=== PATIENT | male | born 1955 | race Caucasian/White ===

== ENCOUNTER 2025-06-19 22:12 | Emergency (ER) | payer MEDICARE, OTHER, SELFPAY ==
[2025-06-19 23:35] LABS: #Basophils 0.08 10x3/uL (0.0-0.2); #Eosinophils 0.33 10x3/uL (0.0-0.7); #Monocytes 1.66 10x3/uL (0.11-0.59); #Neutrophils 6.96 10x3/uL (1.40-6.50); %Basophils 0.7 % (0.0-1.0); %Eosinophils 2.9 % (0.0-10.0); %Lymphocytes 19.4 % (21.0-51.0); %Monocytes 14.6 % (0.0-10.0); %Neutrophils 61.1 % (42.0-75.0); Hematocrit 44.4 % (42.0-52.0); Hemoglobin 14.2 g/dL (14.0-18.0); Mean Corpuscular Hemoglobin 29.7 pg (27.0-31.0); Mean Corpuscular Volume 92.9 fL (78.0-98.0); Platelet Count 253 10x3/uL (130-400); Red Blood Cell (RBC) Count 4.78 mill/uL (4.70-6.10); White Blood Cell (WBC) Count 11.39 10x3/uL (4.8-10.8)
[2025-06-20 00:04] LABS: ALT (SGPT) 19 U/L (Less than 45); AST (SGOT) 23 U/L (11-34); Albumin 3.3 g/dL (3.1-4.5); Alkaline Phosphatase 89 U/L (40-110); Anion Gap 12 mmol/L (10-20); BUN (Urea Nitrogen) 18 mg/dL (8.4-25.7); Bilirubin, Total 0.5 mg/dL (0.3-1.2); Calc. Creatinine Clearance 0 mL/min (70-130); Calcium 8.8 mg/dL (7.8-10.44); Carbon Dioxide 27 mmol/L (23-31); Chloride 102 mmol/L (98-107); Globulin 3.2 g/dL (2.4-3.5); Glucose 97 mg/dL (80-115); Potassium 4.1 mmol/L (3.5-5.1); Sodium 137 mmol/L (136-145)
[2025-06-20] MEDS ORDERED: Vancomycin 1 GM/200 ML (FROZEN) BAG ONE (01:20)
== END 2025-06-20 02:00 | disposition home or self-care (01) ==
LOC: ERS 22:12
DX: I82.611 Acute embolism and thrombosis of superficial veins of right upper extremity (principal); L03.113 Cellulitis of right upper limb; F17.220 Nicotine dependence, chewing tobacco, uncomplicated
CPT/HCPCS: 80053; 85025; 93971; J0692; J2270; J3373; 96365; 96367; 96375

== ENCOUNTER 2025-07-18 22:49 | Emergency (ER) | payer MEDICARE ==
[2025-07-19 00:46] LABS: #Basophils 0.10 10x3/uL (0.0-0.2); #Eosinophils 0.40 10x3/uL (0.0-0.7); #Monocytes 1.35 10x3/uL (0.11-0.59); #Neutrophils 5.53 10x3/uL (1.40-6.50); %Basophils 1.0 % (0.0-1.0); %Eosinophils 4.0 % (0.0-10.0); %Lymphocytes 25.3 % (21.0-51.0); %Monocytes 13.5 % (0.0-10.0); %Neutrophils 55.4 % (42.0-75.0); Hematocrit 43.1 % (42.0-52.0); Hemoglobin 14.2 g/dL (14.0-18.0); Mean Corpuscular Hemoglobin 29.3 pg (27.0-31.0); Mean Corpuscular Volume 88.9 fL (78.0-98.0); Platelet Count 197 10x3/uL (130-400); Red Blood Cell (RBC) Count 4.85 mill/uL (4.70-6.10); White Blood Cell (WBC) Count 9.99 10x3/uL (4.8-10.8)
[2025-07-19 01:01] LABS: ALT (SGPT) 17 U/L (Less than 45); AST (SGOT) 19 U/L (11-34); Albumin 3.5 g/dL (3.1-4.5); Alkaline Phosphatase 94 U/L (40-110); Anion Gap 13 mmol/L (10-20); BUN (Urea Nitrogen) 12 mg/dL (8.4-25.7); Bilirubin, Total 0.3 mg/dL (0.3-1.2); Calc. Creatinine Clearance 0 mL/min (70-130); Calcium 8.8 mg/dL (7.8-10.44); Carbon Dioxide 25 mmol/L (23-31); Chloride 106 mmol/L (98-107); Globulin 3.0 g/dL (2.4-3.5); Glucose 104 mg/dL (80-115); Potassium 3.5 mmol/L (3.5-5.1); Sodium 140 mmol/L (136-145)
[2025-07-19] MEDS ORDERED: Albuterol 2.5 MG (3 mL) NEB ONE (01:01)
[2025-07-19] MEDS ORDERED: predniSONE 20 MG TAB ONE (01:01)
[2025-07-19] MEDS ORDERED: Magnesium 2 GM/50 ML BAG (IN WATER) ONE (01:02)
== END 2025-07-19 03:09 | disposition home or self-care (01) ==
LOC: ERS 22:49
DX: J44.1 Chronic obstructive pulmonary disease with (acute) exacerbation (principal); R91.8 Other nonspecific abnormal finding of lung field; F17.220 Nicotine dependence, chewing tobacco, uncomplicated; Z55.6 Problems related to health literacy
CPT/HCPCS: 71045; 71275; 80053; 83880; 84484; 85025; 85379; 93005; 96365; J3475; J7512; J7611; J7620

== ENCOUNTER 2025-08-21 15:20 | Emergency (ER) | payer MEDICARE ==
[2025-08-21] MEDS ORDERED: Ketorolac Tromethamine 30 MG (1 mL) VIAL ONE (17:28)
== END 2025-08-21 17:46 | disposition home or self-care (01) ==
LOC: ERS 15:20
DX: M25.522 Pain in left elbow (principal); M25.561 Pain in right knee; F17.220 Nicotine dependence, chewing tobacco, uncomplicated; W18.30XA Fall on same level, unspecified, initial encounter
CPT/HCPCS: 73030; 73080; 73564; J1885; 96372; 99283